=== PATIENT | female | born 1995 ===

== ENCOUNTER → 2018-08-20 14:01 | Outpatient (REF) | payer OTHER, SELFPAY | LOC: LAB 14:01 | PROVIDERS: Visit Provider Physician Assistant | DX: L21.8 Other seborrheic dermatitis (principal); L01.01 Non-bullous impetigo; L20.84 Intrinsic (allergic) eczema; L70.0 Acne vulgaris | CPT/HCPCS: 87070; 87077; 87147; 87186; 87205 ==